=== PATIENT | female | born 1970 | race Hispanic/Latino ===

== ENCOUNTER 2017-07-13 15:22 | Outpatient (CLI) | payer OTHER | END 2017-07-13 15:23 | disposition home or self-care (01) | LOC: BICMAMMO 15:22 | DX: Z12.31 Encounter for screening mammogram for malignant neoplasm of breast (principal) | CPT/HCPCS: 77063; 77067 ==

== ENCOUNTER 2017-07-28 09:58 | Outpatient (CLI) | payer OTHER | END 2017-07-28 09:59 | disposition home or self-care (01) | LOC: BICMAMMO 09:58 | DX: N63.20 Unspecified lump in the left breast, unspecified quadrant (principal) | CPT/HCPCS: G0206-LT; G0279 ==